=== PATIENT | female | born 1975 | race Caucasian/White ===

== ENCOUNTER 2022-07-14 15:03 | Emergency (ER) | payer BC, SELFPAY ==
--- OUTSIDE RECORDS SUMMARY | 2022-07-14 15:06 | XMS REPORT | Continuity of Care Document ---
:1975 Author Organization [facility] t Address [address] [place] [address] [address]. [address] [place] [address] Care Team Providers Name Role Phone FREDERICK MOROCHO Attending Clinician Unavailable Payers Payer Name Policy Type Policy Number Effective Date Expiration Date S ource [employer] MED[employer]ARE ADV [id number] 2019 00:00:00 Problems This patient has no known problems. Allergies, Adverse Reactions, Alerts Allergy Allergy Status Severity Reaction(s) Onset Inactive Treating Comm ents Source Name Type Date Date Clinician [facility] Active Unknown-Cmnt 2018-11 Carlo kaye IN [facility] 12-06 ity of 00:00: [address] Medications This patient has no known medications. Procedures This patient has no known procedures. Encounters Start End Encounter Admission Attending Care Care Encounter Source Date/Time Date/Time Type Type Clinicians Facility Department ID 2021-01-24 2021-01-24 Outpatient [facility] [id number] [facility] 08:30:00 08:30:00 [facility] 2020-10-05 2020-10-05 Outpatient Tong MOROCHO [facility] [id number] [facility] 13:00:00 13:00:00 FREDERICK [facility] Results This patient has no known results.
[2022-07-14] MEDS ORDERED: MORPHINE 2 MG/ML SYR ONE (15:58)
[2022-07-14] MEDS ORDERED: ONDANSETRON 4 MG/2 ML VIAL ONE (15:59)
[2022-07-14 16:08] LABS: Absolute Lymphocytes (CBC) 1.3 K/uL (0.7-4.9); Hematocrit 41.7 % (36.0-45.0); Lymphocytes % 21.8 % (15.3-44.8); MPV 8.2 fL (7.6-11.3); RBC Red Blood Cell Count 4.85 M/uL (3.86-4.86)
[2022-07-14 16:17] LABS: Urine Blood Negative (Negative); Urine Glucose Negative (Negative); Urine Protein Negative (Negative); Urine Specific Gravity 1.015 (1.005-1.030)
[2022-07-14 16:26] LABS: Albumin 4.1 g/dL (3.4-5.0); Bilirubin Total 0.4 mg/dL (0.2-1.0); Potassium 3.6 mmol/L (3.5-5.1); Protein, Total 7.8 g/dL (6.4-8.2)
--- NOTE | 2022-07-14 16:57 | RAD REPORT ---
EXAM DESCRIPTION: CTAbdomen Pelvis W Contrast - 07/14/2022 4:51 pm CLINICAL HISTORY: pelvic pain and cramps hat have been getting worse all day COMPARISON: No comparisons TECHNIQUE: CT of the abdomen and pelvis was performed. All CT scans are performed using dose optimization technique as appropriate and may include automated exposure control or mA/KV adjustment according to patient size. FINDINGS: Lower chest: No acute abnormality. Liver: Too small to characterize lesions in the right hepatic lobe are likely benign. Biliary: No biliary ductal dilatation. Stomach: No significant focal abnormality. Duodenum: No significant focal abnormality. Pancreas: No significant abnormality. Spleen: No significant abnormality. Adrenal: No suspicious lesions. Kidney/ureter: No hydronephrosis. No renal calculi. Retroperitoneum: No retroperitoneal adenopathy. Vascular: No aneurysm. Bowel: No significant focal abnormality. Normal appendix. Moderate stool is present colon. Peritoneum: No ascites or free air. Bladder: Grossly unremarkable. Reproductive: No adnexal masses. Bones: No acute fracture. Other: n/a IMPRESSION: No acute intra-abdominal or pelvic finding. Normal appendix.
--- NOTE | 2022-07-14 17:14 | ER ---
Nurse's Notes [facility] Name: Martha Fernandez Age: 46 yrs Sex: Female : 1975 Arrival Date: 07/14/2022 Time: 15:05 Bed 11 Private MD: Diagnosis: UTI/ Urinary tract infection, site not specified Presentation: 07/14 15:16 Chief complaint: Patient states: Pelvic pain and cramps getting worse throughout the kr3 day. No fever. Coronavirus screen: Vaccine status: Patient reports receiving the 2nd dose of the covid vaccine. Client denies travel out of the [place] in the last 14 days. At this time, the client does not indicate any symptoms associated with coronavirus-19. Ebola Screen: Patient denies travel to an Ebola-affected area in the 21 days before illness onset. 15:16 Method Of Arrival: Wheelchair kr3 15:17 Initial Sepsis Screen: Does the patient meet any 2 criteria? No. Patient's initial kr3 sepsis screen is negative. Does the patient have a suspected source of infection? Yes: Acute abdominal pain. Risk Assessment: Do you want to hurt yourself or someone else? Patient reports no desire to harm self or others. Onset of symptoms was July 14, 2022. 15:17 Acuity: PRABHU 3 kr3 Historical: - Allergies: 15:17 PENICILLINS; kr3 - PMHx: 15:17 None; kr3 - PSHx: 15:17 D\T\C; section; kr3 - Immunization history:: Client reports receiving the 2nd dose of the Covid vaccine. - Social history:: Smoking status: Patient denies any tobacco usage or history of. Screenin:33 Abuse screen: Denies threats or abuse. Denies injuries from another. Nutritional hb screening: No deficits noted. Tuberculosis screening: No symptoms or risk factors identified. Fall Risk None identified. Assessment: 16:02 General: Appears in no apparent distress. uncomfortable, Behavior is cooperative, hb anxious. Pain: Pain currently is 9 out of 10 on a pain scale. Neuro: Level of Consciousness is awake, alert, obeys commands, Oriented to person, place, time, situation. Cardiovascular: Patient's skin is warm and dry. Respiratory: Respiratory effort is even, unlabored, Respiratory pattern is regular, symmetrical. GI: Reports lower abdominal pain. : No signs and/or symptoms were reported regarding the genitourinary system. EENT: No signs and/or symptoms were reported regarding the EENT system. Derm: Skin is pink, warm \T\ dry. Musculoskeletal: No signs and/or symptoms reported regarding the musculoskeletal system. 17:15 Reassessment: Patient appears in no apparent distress at this time. Patient and/or hb family updated on plan of care and expected duration. Pain level reassessed. Patient is alert, oriented x 3, equal unlabored respirations, skin warm/dry/pink. Vital Signs: 15:16 BP 158 / 115; Pulse 95; Resp 17; Temp 97.1; Pulse Ox 100% ; Weight 68.04 kg; Height 4 kr3 ft. 9 in. (144.78 cm); Pain 8/10; 16:05 BP 168 / 108; Pulse 89; Resp 15; Pulse Ox 100% on R/A; Pain 9/10; hb 15:16 Body Mass Index 32.46 (68.04 kg, 144.78 cm) kr3 ED Course: 15:05 Patient arrived in ED. rg4 15:17 Triage completed. kr3 15:25 Jerome Moeller is PHCP. jl9 15:25 Dayo Nice MD is Attending Physician. jl9 15:55 Inserted saline lock: 20 gauge in right antecubital area, using aseptic technique. kc6 Blood collected. 15:56 CBC with Diff Sent. kc6 15:56 CMP Sent. kc6 15:56 Lipase Sent. kc6 16:09 Carmella Salinas, RN is Primary Nurse. hb 16:20 Arm band placed on. hb 16:33 Patient has correct armband on for positive identification. hb 16:53 CT Abd/Pelvis - IV Contrast Only In Process Unspecified. EDMS 17:15 No provider procedures requiring assistance completed. IV discontinued, intact, hb bleeding controlled, No redness/swelling at site. Administered Medications: 14:12 Drug: Zofran (Ondansetron) 4 mg Route: IVP; Site: right antecubital; hb 14:44 Follow up: Response: No adverse reaction hb 14:14 Drug: morphine 2 mg Route: IVP; Infused Over: 4 mins; Site: right antecubital; hb 14:44 Follow up: Response: No adverse reaction hb Medication: 16:33 VIS not applicable for this client. hb Outcome: 17:14 Discharge ordered by MD. patterson 17:15 Discharged to home ambulatory. hb 17:15 Condition: stable 17:15 Discharge instructions given to patient, Instructed on discharge instructions, follow up and referral plans. medication usage, Demonstrated understanding of instructions, follow-up care, medications, Prescriptions given X 1. 17:39 Patient left the ED. hb Signatures: Dispatcher [employer] EDMS Carmella Salinas RN RN hb Garcia, Rubi rg4 Linares, John jl9 Adriana Baird RN RN kr3 Jacqueline Ulloa kc6
--- NOTE | 2022-07-14 17:14 | EDPHYS ---
Physician Documentation [facility] Name: Martha Fernandez Age: 46 yrs Sex: Female : 1975 Arrival Date: 07/14/2022 Time: 15:05 Bed 11 Private MD: ED Physician Dayo Nice HPI: 07/14 16:01 This 46 yrs old Female presents to ER via Wheelchair with complaints of jl9 Abdominal Pain. Patient reports sudden onset lower abdominal cramping as of this morning. Just finished her menstrual cycle a few days ago.. 16:01 The patient presents with abdominal pain right lower quadrant, in the left lower jl9 quadrant. Onset: The symptoms/episode began/occurred today. The symptoms do not radiate. Associated signs and symptoms: none. The symptoms are described as crampy. Modifying factors: The symptoms are alleviated by nothing, the symptoms are aggravated by nothing. Severity of pain: in the emergency department the pain is a 6 / 10. The patient has not experienced similar symptoms in the past. Historical: - Allergies: 15:17 PENICILLINS; kr3 - PMHx: 15:17 None; kr3 - PSHx: 15:17 D\T\C; section; kr3 - Immunization history:: Client reports receiving the 2nd dose of the Covid vaccine. - Social history:: Smoking status: Patient denies any tobacco usage or history of. ROS: 16:02 Constitutional: Negative for fever, chills, and weight loss, Eyes: Negative for injury, jl9 pain, redness, and discharge, ENT: Negative for injury, pain, and discharge, Neck: Negative for injury, pain, and swelling, Cardiovascular: Negative for chest pain, palpitations, and edema, Respiratory: Negative for shortness of breath, cough, wheezing, and pleuritic chest pain. 16:02 Back: Negative for injury and pain, : Negative for injury, bleeding, discharge, and swelling, MS/Extremity: Negative for injury and deformity, Skin: Negative for injury, rash, and discoloration, Neuro: Negative for headache, weakness, numbness, tingling, and seizure, Psych: Negative for depression, anxiety, suicide ideation, homicidal ideation, and hallucinations, Allergy/Immunology: Negative for hives, rash, and allergies, Endocrine: Negative for neck swelling, polydipsia, polyuria, polyphagia, and marked weight changes, Hematologic/Lymphatic: Negative for swollen nodes, abnormal bleeding, and unusual bruising. 16:02 Abdomen/GI: Positive for abdominal pain. Exam: 16:02 Constitutional: This is a well developed, well nourished patient who is awake, alert, jl9 and in no acute distress. Head/Face: Normocephalic, atraumatic. Eyes: Pupils equal round and reactive to light, extra-ocular motions intact. Lids and lashes normal. Conjunctiva and sclera are non-icteric and not injected. Cornea within normal limits. Periorbital areas with no swelling, redness, or edema. ENT: Mucous membranes moist. Neck: Trachea midline, no thyromegaly or masses palpated, and no cervical lymphadenopathy. Supple, full range of motion without nuchal rigidity, or vertebral point tenderness. No Meningismus. Chest/axilla: Normal chest wall appearance and motion. Nontender with no deformity. No lesions are appreciated. Cardiovascular: Regular rate and rhythm with a normal S1 and S2. No gallops, murmurs, or rubs. Normal PMI, no JVD. No pulse deficits. Respiratory: Lungs have equal breath sounds bilaterally, clear to auscultation and percussion. No rales, rhonchi or wheezes noted. No increased work of breathing, no retractions or nasal flaring. 16:02 Back: No spinal tenderness. No costovertebral tenderness. Full range of motion. Skin: Warm, dry with normal turgor. Normal color with no rashes, no lesions, and no evidence of cellulitis. MS/ Extremity: Pulses equal, no cyanosis. Neurovascular intact. Full, normal range of motion. Neuro: Awake and alert, GCS 15, oriented to person, place, time, and situation. Cranial nerves II-XII grossly intact. Motor strength 5/5 in all extremities. Sensory grossly intact. Cerebellar exam normal. Normal gait. Psych: Awake, alert, with orientation to person, place and time. Behavior, mood, and affect are within normal limits. 16:02 Abdomen/GI: Inspection: abdomen appears normal, Bowel sounds: normal, Palpation: mild abdominal tenderness, in all quadrants. Vital Signs: 15:16 BP 158 / 115; Pulse 95; Resp 17; Temp 97.1; Pulse Ox 100% ; Weight 68.04 kg; Height 4 kr3 ft. 9 in. (144.78 cm); Pain 8/10; 16:05 BP 168 / 108; Pulse 89; Resp 15; Pulse Ox 100% on R/A; Pain 9/10; hb 15:16 Body Mass Index 32.46 (68.04 kg, 144.78 cm) kr3 MDM: 15:25 Patient medically screened. [facility] 16:03 Data reviewed: vital signs, nurses notes. [facility] 17:06 Counseling: I had a detailed discussion with the patient and/or guardian regarding: the [facility] historical points, exam findings, and any diagnostic results supporting the discharge/admit diagnosis, lab results, radiology results, the need for outpatient follow up, to return to the emergency department if symptoms worsen or persist or if there are any questions or concerns that arise at home. 07/14 15:40 Order name: CBC with Diff; Complete Time: 16:28 [facility] 07/14 15:40 Order name: CMP; Complete Time: 16:28 [facility] 07/14 15:40 Order name: Lipase; Complete Time: 16:28 [facility] 07/14 15:40 Order name: CT Abd/Pelvis - IV Contrast Only; Complete Time: 17:03 [facility] 07/14 16:17 Order name: Urine Dipstick-Ancillary; Complete Time: 16:28 [facility] 07/14 15:40 Order name: IV Saline Lock; Complete Time: 15:55 07/14 15:40 Order name: Labs collected and sent; Complete Time: 15:56 [facility] 07/14 15:40 Order name: Urine Dipstick-Ancillary (obtain specimen); Complete Time: 16:17 07/14 15:40 Order name: Urine Test (obtain specimen); Complete Time: 16:17 [facility] Administered Medications: 14:12 Drug: Zofran (Ondansetron) 4 mg Route: IVP; Site: right antecubital; hb 14:44 Follow up: Response: No adverse reaction hb 14:14 Drug: morphine 2 mg Route: IVP; Infused Over: 4 mins; Site: right antecubital; hb 14:44 Follow up: Response: No adverse reaction hb Disposition Summary: 07/14/22 17:14 Discharge Ordered Location: Home jl9 Condition: Stable jl9 Diagnosis - UTI/ Urinary tract infection, site not specified jl9 Followup: jl9 - With: Private Physician - When: 1 - 2 days - Reason: Recheck today's complaints, Continuance of care, Re-evaluation by your physician Discharge Instructions: - Discharge Summary Sheet jl9 - Urinary Tract Infection, Adult, [id number] jl9 Forms: - Medication Reconciliation Form jl9 - Thank You Letter jl9 - Antibiotic Education jl9 - Prescription Opioid Use jl9 Prescriptions: - Macrobid 100 mg Oral Capsule - take 1 capsule by ORAL route every 12 hours for 10 days; 20 capsule; Refills: jl9 0, Product Selection Permitted Signatures: Dispatcher [employer] EDMS Carmella Salinas, RN RN Jerome Hallman jl9 Adriana Baird RN RN kr3
[2022-07-14 18:16] VITALS: TEMP 97.1; O2SAT 100
[2022-07-14 18:19] VITALS: BP 168/108
== END 2022-07-14 17:39 | disposition home or self-care (01) ==
LOC: ER 15:03
DX: N39.0 Urinary tract infection, site not specified (principal); Z88.0 Allergy status to penicillin
CPT/HCPCS: 36415; 74177; 80053; 81003; 83690; 85025; 96374; 96375; 99284; J2270; J2405; Q9967